=== PATIENT | female | born 1960 | race Caucasian/White ===

== ENCOUNTER 2018-07-04 11:32 | Day surgery (SDC) | payer MEDICARE, MEDICAID, SELFPAY ==
[2018-07-04] VITALS (13 sets, daily range): BP systolic 117–180; BP diastolic 72–140; PULSE 62–87; RESP 18; TEMP 36.3–37.2; O2SAT 90–99; BMI 47.3
--- NOTE | 2018-07-04 13:22 | OP.ENDO_ITS ---
Patient Name: Jessica Farr Procedure Date: 07/04/2018 12:18 PM Date of : 1960 Age: 57 Procedure: Bronchoscopy Indications: stridor, narrowing of airway seen on laryngoscopy Providers: Robert Bryan MD Referring MD: Robert Bryan MD Medicines: Midazolam 7 mg IV, Morphine sulfate 8 mg IV Complications: No immediate complications Procedure: Pre-Anesthesia Assessment: - A History and Physical has been performed. Patient meds and allergies have been reviewed. The risks and benefits of the procedure and the sedation options and risks were discussed with the patient. All questions were answered and informed consent was obtained. Patient identification and proposed procedure were verified prior to the procedure by the physician. Mental Status Examination: normal. Airway Examination: normal oropharyngeal airway. Respiratory Examination: clear to auscultation. CV Examination: RRR, no murmurs, no S3 or S4. ASA Grade Assessment: II - A patient with mild systemic disease. After reviewing the risks and benefits, the patient was deemed in satisfactory condition to undergo the procedure. The anesthesia plan was to use moderate sedation / analgesia (conscious sedation). Immediately prior to administration of medications, the patient was re-assessed for adequacy to receive sedatives. The heart rate, respiratory rate, oxygen saturations, blood pressure, adequacy of pulmonary ventilation, and response to care were monitored throughout the procedure. The physical status of the patient was re-assessed after the procedure. After I obtained informed consent, the scope was passed under direct vision. Throughout the procedure, the patient's blood pressure, pulse, and oxygen saturations were monitored continuously. The bronchoscope was introduced through the left nostril and advanced to the tracheobronchial tree of both lungs. The patient tolerated the procedure well. Moderate Sedation: Moderate (conscious) sedation was personally administered by the endoscopist. Total physician intraservice time was 11 minutes. Findings: Trachea/Collins Abnormalities: Extrinsic compression was found in the upper trachea. 20% occluded. The lesion was successfully traversed. The endotracheal tube is in good position. The visualized portion of the trachea is of normal caliber. The collins is sharp. The tracheobronchial tree was examined to at least the first subsegmental level. Bronchial mucosa and anatomy are normal; there are no endobronchial lesions, and no secretions. Impression: - Extrinsic compression was found in the upper trachea. - The airway examination was normal. - No specimens collected. - The airway examination was normal. Recommendation: - Patient has a contact number available for emergencies. The signs and symptoms of potential delayed complications were discussed with the patient. Return to normal activities tomorrow. Written discharge instructions were provided to the patient. Procedure Code(s): --- Professional --- 86372, Bronchoscopy, rigid or flexible, including fluoroscopic guidance, when performed; diagnostic, with cell washing, when performed (separate procedure) [id number], Moderate sedation services provided by the same physician or other qualified health career development associate performing the diagnostic or therapeutic service that the sedation supports, requiring the presence of an independent trained observer to assist in the monitoring of the patient's level of consciousness and physiological status; initial 15 minutes of intraservice time, patient age 5 years or older Diagnosis Code(s): --- Professional --- J39.8, Other specified diseases of upper respiratory tract CPT copyright 2017 [employer]. All rights reserved. The codes documented in this report are preliminary and upon product management analyst review may be revised to meet current compliance requirements. MD Robert Chery MD 07/04/2018 1:22:27 PM This report has been signed electronically. Number of Addenda: 0 Note Initiated On: 07/04/2018 12:18 PM
== END 2018-07-04 14:49 | disposition home or self-care (01) ==
LOC: EN 11:33 → AC 11:37
PROVIDERS: Family Provider Family Medicine; PCP Family Medicine; Referring Provider Internal Medicine Pulmonary Disease; Visit Provider Internal Medicine Pulmonary Disease
PROC: 0BJ08ZZ Inspection of Tracheobronchial Tree, Via Natural or Artificial Opening Endoscopic (ICD-10-PCS; CPT 31622; principal; 2018-07-04 12:15)
DX: J39.8 Other specified diseases of upper respiratory tract (principal); J45.40 Moderate persistent asthma, uncomplicated; J30.9 Allergic rhinitis, unspecified; Q31.1 Congenital subglottic stenosis; R06.1 Stridor; Z87.891 Personal history of nicotine dependence
CPT/HCPCS: 31622; 99152; 99153; J7120